=== PATIENT | female | born 1940 | race Caucasian/White ===

== ENCOUNTER 2024-10-11 10:44 | Outpatient (CLI) | payer MEDICARE, SELFPAY ==
--- NOTE | 2024-10-11 11:30 | NEURO_ITS ---
Impression: # Known diabetic complains of increasing numbness of hands. # Bilateral ulnar neuropathy across the elbows. # No Carpal Tunnel Syndrome. # Needle/EMG exam mildly neurogenic in 1st DI and ADM muscles. Nerve Conduction Studies Anti Sensory Summary Table Stim Site NR Peak (ms) P-T Amp (?V) Site1 Site2 Delta-P (ms) Dist (cm) Russ (m/s) Left Median Anti Sensory (2-3nd Digit) Wrist 3.4 45.4 Wrist 2-3nd Digit 3.4 14.0 41 Wrist 3.7 64.6 Wrist 2-3nd Digit 3.4 14.0 41 Right Median Anti Sensory (2-3nd Digit) Wrist 3.8 29.2 Wrist 2-3nd Digit 3.8 14.0 37 Wrist 3.5 76.0 Wrist 2-3nd Digit 3.8 14.0 37 Left Radial Anti Sensory (Base 1st Digit) Wrist 2.3 34.0 Wrist Base 1st Digit 2.3 0.0 Right Radial Anti Sensory (Base 1st Digit) Wrist 2.6 21.5 Wrist Base 1st Digit 2.6 0.0 Left Ulnar Anti Sensory (5th Digit) Wrist 3.3 45.7 Wrist 5th Digit 3.3 14.0 42 Right Ulnar Anti Sensory (5th Digit) Wrist 3.4 40.4 Wrist 5th Digit 3.4 14.0 41 Motor Summary Table Stim Site NR Onset (ms) O-P Amp (mV) Site1 Site2 Delta-0 (ms) Dist (cm) Russ (m/s) Left Median Motor (Abd Poll Brev) Wrist 3.4 3.4 Elbow Wrist 5.4 29.0 54 Elbow 8.8 2.8 Right Median Motor (Abd Poll Brev) Wrist 3.4 6.3 Elbow Wrist 5.2 28.0 54 Elbow 8.6 5.4 Left Ulnar Motor (Abd Dig Minimi) Wrist 3.4 6.5 A Elbow Wrist 6.3 30.0 48 A Elbow 9.7 4.9 B Elbow Wrist 3.2 20.0 63 B Elbow 6.6 4.4 Right Ulnar Motor (Abd Dig Minimi) Wrist 3.8 7.4 A Elbow Wrist 6.0 29.0 48 A Elbow 9.8 6.0 B Elbow Wrist 4.2 21.0 50 B Elbow 8.0 4.8 F Wave Studies NR F-Lat (ms) L-R F-Lat (ms) Left Median (Mrkrs) (Abd Poll Brev) 27.58 0.23 Right Median (Mrkrs) (Abd Poll Brev) 27.34 0.23 Left Ulnar (Mrkrs) (Abd Dig Min) 29.01 0.13 Right Ulnar (Mrkrs) (Abd Dig Min) 29.14 0.13 EMG Side Muscle Nerve Root Ins Act Fibs Amp Dur Recrt Comment Right 1stDorInt Ulnar C8-T1 Nml Nml Nml >12ms +1 Right Ext Indicis Radial (Post Int) C7-8 Nml Nml Nml Nml Nml Right Ext Digitorum Radial (Post Int) C7-8 Nml Nml Nml Nml Nml Right BrachioRad Radial C5-6 Nml Nml Nml Nml Nml Right PronatorTeres Median C6-7 Nml Nml Nml Nml Nml Right Abd Poll Brev Median C8-T1 Nml Nml Nml Nml Nml Right ABD Dig Min Ulnar C8-T1 Nml Nml Nml >12ms +1 Left 1stDorInt Ulnar C8-T1 Nml Nml Nml >12ms +1 Left Ext Indicis Radial (Post Int) C7-8 Nml Nml Nml Nml Nml Left Ext Digitorum Radial (Post Int) C7-8 Nml Nml Nml Nml Nml Left BrachioRad Radial C5-6 Nml Nml Nml Nml Nml Left PronatorTeres Median C6-7 Nml Nml Nml Nml Nml Left Abd Poll Brev Median C8-T1 Nml Nml Nml Nml Nml Left ABD Dig Min Ulnar C8-T1 Nml Nml Nml >12ms +1 MTDD
== END 2024-10-11 10:45 | disposition home or self-care (01) ==
LOC: ANHNEURO 10:48
PROVIDERS: PCP Family Medicine
DX: G56.23 Lesion of ulnar nerve, bilateral upper limbs (principal); E11.40 Type 2 diabetes mellitus with diabetic neuropathy, unspecified
CPT/HCPCS: 95886; 95911

== ENCOUNTER 2025-10-01 20:28 | Emergency (ER) | payer MEDICARE, SELFPAY ==
--- NOTE | ~2025-10-01 | XR_ITS ---
XR ankle LT min 3V INDICATION: fall . COMPARISON: None. FINDINGS: Frontal, lateral and oblique views of the left ankle demonstrate no acute fracture or dislocation. Degenerative plantar calcaneal spurs noted. IMPRESSION: No acute fracture or dislocation. Reviewed, dictated and finalized at location S. VERY ROOM NURSE
[2025-10-01 20:33] VITALS: BP 137/64; PULSE 80; RESP 16; TEMP 36.8; O2SAT 97
--- NOTE | 2025-10-01 20:38 | ED.FALL ---
HPI - Fall General Chief Complaint: Fall Stated Complaint: Fall yesterday Time Seen by Provider: 10/01/25 20:31 Source: patient and EMS Mode of arrival: EMS Limitations: no limitations History of Present Illness HPI Narrative: This is an 84-year-old females CKD, diabetes, hypertension who presents the ED for a fall and left ankle pain. Patient states that she was doing physical therapy at rehab yesterday when she had difficulty getting her balance in the bathroom and fell between the toilet and the bathtub and she felt her left ankle band awkwardly. She has diminished sensation to her bilateral feet anyway so she did not feel much pain. However, there was apparently an x-ray that was obtained that showed a fracture earlier today so she was sent here for further evaluation. Denies hitting her head. Related Data Home Medications ?Medication ?Instructions ?Recorded ?Confirmed ?Last Taken ?Type aspirin 81 mg tablet,delayed 81 mg PO DAILY 12/28/19 09/25/25 09/25/25 History release (Adult Aspirin Regimen) amlodipine 10 mg tablet 10 mg PO DAILY 09/25/25 09/25/25 09/25/25 History cephalexin 500 mg capsule 500 mg PO Q12H 09/25/25 09/25/25 09/25/25 History cholecalciferol (vitamin D3) 25 25 mcg PO DAILY 09/25/25 09/25/25 09/25/25 History mcg (1,000 unit) capsule cyclobenzaprine 10 mg tablet 10 mg PO TID PRN muscle spasm 09/25/25 09/25/25 09/24/25 23:30 History docusate sodium 100 mg capsule 100 mg PO DAILY 09/25/25 09/25/25 09/25/25 History empagliflozin 10 mg tablet 10 mg PO DAILY 09/25/25 09/25/25 09/25/25 History (Jardiance) gabapentin 300 mg capsule 300 mg PO TID 09/25/25 09/25/25 09/25/25 History insulin aspart U-100 100 unit/mL 4 unit subcut AC 09/25/25 09/25/25 09/25/25 History subcutaneous solution insulin glargine 100 unit/mL 25 unit subcut HS 09/25/25 09/25/25 09/24/25 History subcutaneous solution (Lantus U-100 Insulin) levothyroxine 175 mcg tablet 175 mcg PO DAILY@0630 09/25/25 09/25/25 09/25/25 History (Synthroid) oxycodone 5 mg tablet 5 mg PO Q6H PRN pain 09/25/25 09/25/25 09/24/25 History Allergies Allergy/AdvReac Type Severity Reaction Status Date / Time No Known Allergies Allergy Verified 09/25/25 17:14 Review of Systems Review of Systems: Gen.: Denies fevers or chills Eyes: Denies eye pain or visual change ENT: Denies congestion Respiratory: Denies shortness of breath or cough CV: Denies chest pain or palpitations GI: Denies abdominal pain nausea, emesis or diarrhea denies burning, urgency, frequency or hematuria Musculoskeletal: As per HPI Neuro: Denies numbness, tingling, weakness or focal weakness Skin: Denies rash Except as documented, all other systems reviewed and negative PMFSH Past Medical History Medical History Ulnar tunnel syndrome Postmenopausal Plantar fasciitis Memory loss Hair loss Body mass index (BMI) 35 or more (08/25/18) Vitamin B12 deficiency Diabetic peripheral neuropathy Essential hypertension Hyperlipidemia, unspecified Hypothyroidism, acquired Type 2 diabetes mellitus with hyperglycemia Arthritis Surgical History Surgical History History of carpal tunnel surgery History of bilateral salpingectomy History of oophorectomy H/O skin graft History of bilateral tubal ligation both removed at different times H/O: hysterectomy Hx of tonsillectomy Family History Family History Other Family history of cardiovascular disease Family history of primary malignant neoplasm of liver Social History Social History Smoking status: Never smoker Second hand tobacco smoke exposure: Yes Alcohol intake: former Drinks per week: 0 Alcohol use details: 1 time per year Substance use: never Substance use type: does not use Lack of Transportation: No Lack of Food: Never True Current Housing: I Have Housing Concerned About Future Housing: No Difficulty Paying Gas/Electric Bills: No Difficulty Paying for Meds: No Currently Unemployed: No Education: High School Diploma/GED Difficulty w/ Childcare or Family Care: No Spiritual care concerns: No Exam Narrative: APPEARANCE: No acute distress, nontoxic, resting in bed HEENT: Normocephalic, atraumatic, OMM RESPIRATORY: No respiratory distress CARDIOVASCULAR: Appears well perfused ABDOMINAL: Nondistended MUSCULOSKELETAl: Moves all extremities. Mild tenderness over the left lateral malleolus with some surrounding ecchymosis. NEURO: Awake and alert. SKIN:: Warm, dry. No rashes lesions or abrasions PSYCHIATRIC: Normal affect/mood, Course Vital Signs Vital signs: Vital Signs Temperature 98.2 F 10/01/25 20:33 Pulse Rate 80 10/01/25 20:33 Respiratory Rate 16 10/01/25 20:33 Blood Pressure 137/64 10/01/25 20:33 Pulse Oximetry 97 10/01/25 20:33 Oxygen Delivery Room Air 10/01/25 20:33 Temperature 98.2 F 10/01/25 20:33 Pulse Rate 80 10/01/25 20:33 Respiratory Rate 16 10/01/25 20:33 Blood Pressure 137/64 10/01/25 20:33 Pulse Oximetry 97 10/01/25 20:33 Oxygen Delivery Room Air 10/01/25 20:33 MDM - Fall MDM Narrative Medical decision making narrative: 84-year-old female Presenting for left ankle pain after a fall. On initial evaluation patient was in no acute distress afebrile, hemodynamic stable. Differentials include but are not limited to: Fracture, sprain, strain, contusion Notable exam findings: Ecchymosis and tenderness over the left lateral malleolus common vascularly intact distally, stable tingling per patient distal to this Notable imaging findings: X-ray left ankle showed a talar avulsion fracture Attempted to obtain x-rays from [facility] but these were unavailable to us so repeat x-rays were obtained which did confirm the talar avulsion fracture as noted in prior note. Patient does have some atos-to-jxebcjja tenderness over the left ankle with some pretty significant swelling so she was placed in a ortho glass splint. Splint was placed by the emergency department veterinary surgery technician under my supervision. The patient was neurovascularly intact both pre-and post procedure. Patient was deemed appropriate for discharge at this time. She was given a referral to Dr. Leblanc, orthopedic surgery, for follow-up. Patient was agreeable to this plan. Given strict return precautions. Medical Records Attestation: I reviewed the patient's medical records. Lab Data Attestation: I reviewed the patient's lab results. Imaging Data Attestation: I personally reviewed and interpreted this imaging study as follows: My impression: X-ray ankle: Talar avulsion fracture with no other fractures identified Radiologist's impression: Impressions Ankle X-Ray 10/01/25 20:50 IMPRESSION: No acute fracture or dislocation. Discharge Plan Discharge Clinical Impression: Ankle fracture, left Qualifiers: Encounter type: initial encounter Fracture type: closed Qualified Code(s): S82.892A - Other fracture of left lower leg, initial encounter for closed fracture Fall Qualifiers: Encounter type: initial encounter Qualified Code(s): W19.XXXA - Unspecified fall, initial encounter Patient Disposition: Home Condition: Stable Instructions: Antibiotic Form, Ankle Fracture (ED) Additional Instructions: You were found to have a very small ankle fracture. This will likely not require any surgery. He replaced the splint more for comfort than anything. You are able to participate in rehab as her pain allows. You were given a referral to Dr. Leblanc, orthopedic surgery, to follow up within the next week if able. Return to the ED for any new or worsening symptoms. Patient Language: Sami Prescriptions: No Action aspirin [Adult Aspirin Regimen] 81 mg tablet,delayed release (DR/EC) 81 mg PO DAILY metformin 1,000 mg tablet 1,000 mg PO BID 90 Days Qty: 180 1RF (DME) pen needle, diabetic 32 gauge x 5/32 needle See Rx Instructions .ROUTE .MEDSUPPLY Qty: 300 1RF Rx Instructions: Use with insulin 4 times a day hydrochlorothiazide 12.5 mg tablet 12.5 mg PO DAILY Qty: 30 1RF (DME) blood-glucose meter [OneTouch Ultra2 Meter] Kit See Rx Instructions .ROUTE .MEDSUPPLY Qty: 1 1RF Rx Instructions: Use to check BS 2 times daily (DME) OneTouch Ultra Test Strip See Rx Instructions .Route Qty: 200 1RF Rx Instructions: Check blood sugar 2 times daily atorvastatin 40 mg tablet See Rx Instructions .ROUTE .COMPLEX Qty: 90 2RF Dose Instruction: TAKE 1 TABLET BY MOUTH ONCE DAILY IN THE EVENING WITH 20MG TABLET TO EQUAL 60MG DAILY Rx Instructions: TAKE 1 TABLET BY MOUTH ONCE DAILY IN THE EVENING WITH 20MG TABLET TO EQUAL 60MG DAILY atorvastatin 20 mg tablet See Rx Instructions .ROUTE .COMPLEX Qty: 90 1RF Dose Instruction: TAKE 1 TABLET BY MOUTH IN THE EVENING WITH 40MG TAB TO EQUAL 60MG DAILY Rx Instructions: TAKE 1 TABLET BY MOUTH IN THE EVENING WITH 40MG TAB TO EQUAL 60MG DAILY amlodipine 10 mg tablet 10 mg PO DAILY cephalexin 500 mg capsule 500 mg PO Q12H Rx Instructions: X1 Dose. cyclobenzaprine 10 mg tablet 10 mg PO TID PRN (Reason: muscle spasm) docusate sodium 100 mg capsule 100 mg PO DAILY Rx Instructions: x10 days gabapentin 300 mg capsule 300 mg PO TID insulin glargine [Lantus U-100 Insulin] 100 unit/mL solution 25 unit subcut HS levothyroxine [Synthroid] 175 mcg tablet 175 mcg PO DAILY@0630 oxycodone 5 mg tablet 5 mg PO Q6H PRN (Reason: pain) cholecalciferol (vitamin D3) 25 mcg (1,000 unit) capsule 25 mcg PO DAILY Jardiance 10 mg tablet 10 mg PO DAILY insulin aspart U-100 100 unit/mL solution 4 unit subcut AC Follow-up/Referrals: Neeta Kim MD [Primary Care Provider, Family Practice] Baldomero Leblanc MD [Physician, Orthopedics] Stand Alone Forms: Shelter Discharge
== END 2025-10-01 22:04 ==
PROVIDERS: Emergency Provider Student in an Organized Health Care Education/Training Program; PCP Family Medicine
DX: S82.892A Other fracture of left lower leg, initial encounter for closed fracture (principal); I10 Essential (primary) hypertension; E11.9 Type 2 diabetes mellitus without complications; M19.90 Unspecified osteoarthritis, unspecified site; E03.9 Hypothyroidism, unspecified; E78.5 Hyperlipidemia, unspecified; Z79.4 Long term (current) use of insulin; W01.0XXA Fall on same level from slipping, tripping and stumbling without subsequent striking against object, initial encounter
CPT/HCPCS: 29515; 73610; 99284